=== PATIENT | female | born 2000 | race Hispanic/Latino ===

== ENCOUNTER 2025-02-21 09:03 | Emergency (ER) | payer SELFPAY ==
[2025-02-21 09:05] VITALS: BP 141/69
--- NOTE | 2025-02-21 10:01 | ED.GENMED ---
History of Present Illness
General
Chief Complaint: Cough
Source: patient
Exam Limitations: none
Time Seen by Provider: 02/21/25 09:27
History of Present Illness
History of Present Illness:
25-year-old female 3 to 4 days cough congestion shortness of breath. Some improvement with patient's brothers albuterol. Some mild sputum. No hemoptysis no pleuritic pain no fever.
Past History
Past History
ED Past Medical History: None; Negative Asthma, HTN, Hypercholesterolemia or NIDDM
ED Past Surgical History: Gynecological
Social History
Tobacco: Vaping (Former smoker)
Alcohol: None
Drug: None
Personal: Single
Living: with family
Family History
Family History: Other (Noncontributory)
Review of Systems
Review of Systems
All Other Systems: Not applicable
Constitutional: Denies fever
Respiratory: Denies hemoptysis
Cardiac: Denies chest pain
Phy Exam
Physical Exam
Physical Exam:
GENERAL: Alert and oriented in no apparent distress
EYE: Orbits normal.
NECK: Supple
CARDIAC: Regular rate and rhythm without any obvious murmurs.
LUNGS: Mild tachypnea with diffuse inspiratory and expiratory wheezing
ABDOMEN: Soft, without focal tenderness or distention
NEUROLOGICAL: Alert and oriented , grossly non-focal
SKIN: Warm and dry, no rash or lesion, no discoloration, skin intact.
MUSCULOSKELETAL: No edema,no deformity.Good color
PSYCH: Normal and appropriate interaction.
Sepsis
Sepsis Screening
Sepsis Assessment: Sepsis Ruled Out
Sepsis Screen
Sepsis Screen: Sepsis Ruled Out
Date: 02/21/25
Time: 13:16
Course
Orders/Labs/Results
Orders:
Orders
02/21/25 09:51
Albuterol Sulfate [Ventolin Nebules] 7.5 mg INH R NOW STA
Ipratropium/Albuterol Sulfate [Duoneb] 3 ml INH R NOW STA
Prednisone [Deltasone] 50 mg PO NOW STA
CXR2 [CR Chest - 2 Views ] Urgent
Comment:
Reason For Exam: cough wheezing
Vital Signs
Initial and Last Documented VS:
Initial Vital Signs
Temp Pulse Resp BP Pulse Ox
98.5 F 94 22 141/69 98
02/21/25 09:05 02/21/25 09:05 02/21/25 09:05 02/21/25 09:05 02/21/25 09:05
Last Documented Vital Signs
Temp Pulse Resp BP Pulse Ox
98.5 F 94 22 141/69 98
02/21/25 09:05 02/21/25 09:05 02/21/25 09:05 02/21/25 09:05 02/21/25 09:05
*Radiology
Radiology exam reviewed: radiology read reviewed (Negative chest x-ray)
*Pulse Oximetry
Patient hypoxic: no
*Critical Care Note
Total Time (30-74mins, 75-104mins- exclusive of procedures): Not Applicable
Update Note
Update Note:
Patient much better after nebulizer treatments. Very mild expiratory wheezing. No distress. No indication for antibiotics. Steroids and follow-up
ED Attending Note
-
Portions of this chart may have been created with voice recognition software.� Occasional wrong word or��sound alike� substitutions may have occurred due to the inherent limitations of voice recognition software.
Discharge Plan
Departure
Patient Disposition: Home (Routine Discharge)
Date of Disposition: 02/21/25
Time of Disposition: 12:27
Patient with high blood pressure during this ER visit?: Yes
Discharge Problem:
Asthmatic bronchitis
Instructions: Acute Bronchitis, Adult (DC)
Prescriptions:
New
prednisone 50 mg tablet
50 mg PO DAILY Qty: 6 0RF
albuterol sulfate 90 mcg/actuation HFA aerosol inhaler
2 inh inhalation Q4H Qty: 8.5 0RF
No Action
famotidine 20 MG tablet
20 mg PO BID Qty: 28 0RF
Rx Instructions:
Take 20 mg twice a day for 14 days
ascorbic acid (vitamin C) [Vitamin C] 500 MG tablet
1,000 mg PO BID Qty: 56 0RF
Rx Instructions:
Take 1,000 mg twice a day for 14 days
aspirin 81 MG tablet,chewable
81 mg PO DAILY Qty: 14 0RF
Rx Instructions:
Take 81 mg daily for 14 days
zinc sulfate 220 MG capsule
220 mg PO DAILY Qty: 14 0RF
Rx Instructions:
Take 220 mg daily for 14 days
cholecalciferol (vitamin D3) 1,000 UNITS tablet
2,000 units PO DAILY Qty: 28 0RF
Rx Instructions:
Take 2,000 units daily for 14 days
melatonin 5 MG tablet
5 mg PO HS Qty: 14 0RF
Rx Instructions:
Take 5 mg daily at bedtime for 14 days
prednisone 20 MG tablet
20 mg PO BID Qty: 10 0RF
ondansetron [Zofran ODT] 8 MG tablet,disintegrating
8 mg PO TID PRN (Reason: nausea/vomiting) Qty: 20 0RF
albuterol sulfate 90 mcg/actuation HFA aerosol inhaler
2 puff inhalation Q6H PRN (Reason: shortness of breath or wheezing) Qty: 8.5 0RF
ondansetron 8 mg tablet,disintegrating
8 mg PO TID PRN (Reason: nausea and vomiting) Qty: 20 0RF
oxycodone 5 mg tablet
5 mg PO Q4H PRN (Reason: Pain) Qty: 14 0RF
Referrals:
[facility] [Outside]
NONE,* [Family Provider] -
Activity Restrictions/Additional Instructions:
The prescriptions were sent to your pharmacy
Return with increased shortness of breath fever chest pain persistent cough or if symptoms not improving in 1 to 2 days
You need to find a regular physician. You can try pulse line. Of course if your symptoms increase please return to the ER immediately for reevaluation
Interventions
Interventions:
*Risk Screen - Suicide Last Done: 02/21/25 09:05
*General Assessment Last Done: 02/21/25 09:05
*Neglect/Abuse Screening Last Done: 02/21/25 09:05
*ED- Fall Risk Assessment Last Done: 02/21/25 09:05
*ED COVID-19 Vaccine History Last Done: 02/21/25 09:05
ED- Pulmonary Assessment Last Done: 02/21/25 10:27
Discharge Date and Time
Print Language: WOLOF
[2025-02-21] MEDS: DELTASONE 50 MG PO (10:13)
[2025-02-21] MEDS: VENTOLIN NEBULES 7.5 MG INH (10:13)
[2025-02-21] MEDS: DUONEB 3 ML INH (10:13)
[2025-02-21 12:35] VITALS: BP 141/88
== END 2025-02-21 12:35 | disposition home or self-care (01) ==
LOC: EMR 09:03
PROVIDERS: EMERGENCY PHYSICIAN Emergency Medicine
DX: J45.909 Unspecified asthma, uncomplicated (principal); Z87.891 Personal history of nicotine dependence
CPT/HCPCS: 94640; 99284; 71046

== ENCOUNTER 2025-09-08 18:43 | Emergency (ER) | payer MEDICAID, SELFPAY ==
[2025-09-08 18:46] VITALS: BP 116/88
[2025-09-08 19:15] LABS: COVID-19 Antigen Negative (Negative)
--- NOTE | 2025-09-08 19:47 | ED.GENMED ---
History of Present Illness
General
Chief Complaint: Breathing Problem
Source: patient
Exam Limitations: none
Time Seen by Provider: 09/08/25 19:39
Nursing documentation reviewed up to this point in time: agreed with
History of Present Illness
History of Present Illness:
Patient to the emergency department with complaint of shortness of breath and cough. Symptoms started approximately 2 days ago. She denies any fever or chills. She denies any chest pain/pressure. No prior history of same. Brought self to the
emergency department for evaluation.
Past History
Past History
ED Past Medical History: None; Negative Asthma, HTN, Hypercholesterolemia or NIDDM
ED Past Surgical History: Gynecological
Social History
Tobacco: Vaping (Former smoker)
Alcohol: None
Drug: None
Personal: Single
Living: with family
Family History
Family History: Other (Noncontributory)
Review of Systems
Review of Systems
Allergies reviewed?: Yes
All Other Systems: ROS reviewed and negative except as documented in HPI and ROS
Constitutional: Reports no symptoms
EENT: Reports no symptoms
Respiratory: Reports cough and trouble breathing
Cardiac: Reports no symptoms
ABD/GI: Reports no symptoms
: Reports no symptoms
Musculoskeletal: Reports no symptoms
Skin: Reports no symptoms
Neurological: Reports no symptoms
Psychiatric: Reports no symptoms
Phy Exam
General Physical Exam
General Presentation: moderate distress
General age: appears stated age
General Skin: warm and dry
General Habitus: normal
General Mental: alert
General Hydration: appears well hydrated
Cardiovascular Exam
Cardiovascular Exam: regular rate/rhythm and no edema
Pulmonary Exam
Pulmonary Exam: chest non tender and generalized wheezing
Cough: non productive cough
Musculoskeletal Exam
Musculoskeletal Exam: full ROM and neuro vasc intact
Skin Exam
Skin Exam: normal color, warm/dry and no rash
Psychiatric Exam
Psychiatric Exam: normal mood/affect
Course
Orders/Labs/Results
Orders:
Orders
09/08/25 18:51
COVID-19 Antigen Urgent
Source: Nasal Swab
Influenza A+B Rapid Molecular Urgent
[facility]I Source: Nasal Swab
Specimen Description:
09/08/25 19:46
Dexamethasone Pf [Decadron] 10 mg PO NOW STA
Ipratropium/Albuterol Sulfate [Duoneb] 3 ml INH R NOW STA
09/08/25 19:47
CR Chest - 2 Views Urgent
Comment:
Reason For Exam: SOB, cough
Vital Signs
Initial and Last Documented VS:
Initial Vital Signs
Temp Pulse Resp BP Pulse Ox
98.2 F 118 16 116/88 96
09/08/25 18:46 09/08/25 18:46 09/08/25 18:46 09/08/25 18:46 09/08/25 18:46
Last Documented Vital Signs
Temp Pulse Resp BP Pulse Ox
98.2 F 93 18 116/88 97
09/08/25 18:46 09/08/25 20:50 09/08/25 20:50 09/08/25 18:46 09/08/25 20:50
*Radiology
Radiology exam reviewed: radiology read reviewed
*Pulse Oximetry
SaO2: 96
Oxygen Mode of Delivery: Room air
Patient hypoxic: no
*Critical Care Note
Total Time (30-74mins, 75-104mins- exclusive of procedures): Not Applicable
Update Note
Update Note:
Patient to the emergency department for evaluation of shortness of breath and cough. On initial exam she has expiratory wheezing throughout. She was given DuoNeb and Decadron 10 mg p.o. while in ED with improvement of her symptoms. Chest x-ray
NAD. Will discharge home. Given prescription for Proventil inhaler and prednisone taper. She was given instructions for signs and symptoms to return to the emergency department and she is agreeable to this plan.
ED Attending Note
-
Portions of this chart may have been created with voice recognition software.� Occasional wrong word or��sound alike� substitutions may have occurred due to the inherent limitations of voice recognition software.
Discharge Plan
Departure
Patient Disposition: Home (Routine Discharge)
Date of Disposition: 09/08/25
Time of Disposition: 21:16
Patient with high blood pressure during this ER visit?: No
Condition: Good
Covid-19: Not Applicable
Discharge Problem:
Asthma exacerbation
Instructions: Asthma, Adult (DC)
Prescriptions:
New
albuterol sulfate [Ventolin HFA] 90 mcg/actuation HFA aerosol inhaler
2 puff inhalation Q4H PRN (Reason: shortness of breath or wheezing) Qty: 8.5 0RF
prednisone 10 mg Tablet
See Rx Instructions .ROUTE .COMPLEX Qty: 30 0RF
Rx Instructions:
Take By Mouth:
40 mg daily x3 days, 30 mg daily x3 days,
20 mg daily x3 days, 10 mg daily x3 days.
No Action
famotidine 20 MG tablet
20 mg PO BID Qty: 28 0RF
Rx Instructions:
Take 20 mg twice a day for 14 days
ascorbic acid (vitamin C) [Vitamin C] 500 MG tablet
1,000 mg PO BID Qty: 56 0RF
Rx Instructions:
Take 1,000 mg twice a day for 14 days
aspirin 81 MG tablet,chewable
81 mg PO DAILY Qty: 14 0RF
Rx Instructions:
Take 81 mg daily for 14 days
zinc sulfate 220 MG capsule
220 mg PO DAILY Qty: 14 0RF
Rx Instructions:
Take 220 mg daily for 14 days
cholecalciferol (vitamin D3) 1,000 UNITS tablet
2,000 units PO DAILY Qty: 28 0RF
Rx Instructions:
Take 2,000 units daily for 14 days
melatonin 5 MG tablet
5 mg PO HS Qty: 14 0RF
Rx Instructions:
Take 5 mg daily at bedtime for 14 days
prednisone 20 MG tablet
20 mg PO BID Qty: 10 0RF
ondansetron [Zofran ODT] 8 MG tablet,disintegrating
8 mg PO TID PRN (Reason: nausea/vomiting) Qty: 20 0RF
albuterol sulfate 90 mcg/actuation HFA aerosol inhaler
2 puff inhalation Q6H PRN (Reason: shortness of breath or wheezing) Qty: 8.5 0RF
ondansetron 8 mg tablet,disintegrating
8 mg PO TID PRN (Reason: nausea and vomiting) Qty: 20 0RF
oxycodone 5 mg tablet
5 mg PO Q4H PRN (Reason: Pain) Qty: 14 0RF
prednisone 50 mg tablet
50 mg PO DAILY Qty: 6 0RF
albuterol sulfate 90 mcg/actuation HFA aerosol inhaler
2 inh inhalation Q4H Qty: 8.5 0RF
Referrals:
[facility] [Outside] - Follow up in 2-3 days
NONE,* [Family Provider, Internal Medicine]
Stand Alone Forms: Return to Work
Activity Restrictions/Additional Instructions:
Return to the emergency department immediately for any changes in/worsening of your symptoms.
Interventions
Interventions:
*Risk Screen - Suicide Last Done: 09/08/25 18:46
*General Assessment Last Done: 09/08/25 20:26
*Neglect/Abuse Screening Last Done: 09/08/25 18:46
*ED- Fall Risk Assessment Last Done: 09/08/25 20:26
*Nursing Disposition Last Done: 09/08/25 21:36
ED- Cardiac Assessment Last Done: 09/08/25 20:25
ED- Pulmonary Assessment Last Done: 09/08/25 20:25
Discharge Date and Time
Discharge Date/Time: 09/08/25 21:36
Print Language: POLISH
[2025-09-08] MEDS: DECADRON 10 MG PO (20:06)
[2025-09-08] MEDS: DUONEB 3 ML INH (20:06)
== END 2025-09-08 21:36 | disposition home or self-care (01) ==
LOC: EMR 18:43
PROVIDERS: EMERGENCY PHYSICIAN Emergency Medicine
DX: J45.901 Unspecified asthma with (acute) exacerbation (principal); F17.290 Nicotine dependence, other tobacco product, uncomplicated
CPT/HCPCS: 99284; 94640; 71046; 87502; 87811